=== PATIENT | female | born 1945 | race Caucasian/White ===

== ENCOUNTER 2017-04-19 08:00 | Outpatient (CLI) | payer MEDICARE, BC | END 2017-04-19 08:01 | disposition home or self-care (01) | LOC: BICMAMMO 08:00 | PROVIDERS: ATTEND Family Medicine | DX: Z12.31 Encounter for screening mammogram for malignant neoplasm of breast (principal); R92.1 Mammographic calcification found on diagnostic imaging of breast | CPT/HCPCS: 77063; G0202; 77067 ==

== ENCOUNTER 2018-08-10 09:48 | Outpatient (CLI) | payer MEDICARE, BC ==
--- NOTE | 2018-08-10 11:27 | MMO ---
Bilateral MAMMO Bilat Screen [facility]. CLINICAL HISTORY: Patient is 73 years old and is seen for screening. The patient has no family history of breast cancer. The patient has no personal history of cancer. VIEWS: The views performed were: bilateral craniocaudal with tomosynthesis and bilateral mediolateral oblique with tomosynthesis. FILMS COMPARED: The present examination has been compared to prior imaging studies performed at [facility] on 06/03/1999, 12/03/1999, 12/06/2000, 02/07/2002, 02/22/2003, 04/23/2004, 03/08/2006, 04/26/2007, 04/29/2008, 05/07/2009, 06/03/2010, 07/01/2011, 07/05/2012, 12/12/2013, 01/10/2015, 03/08/2016 and 04/19/2017. MAMMOGRAM FINDINGS: There are scattered fibroglandular densities. There are stable benign appearing calcifications seen in both breasts. There are no suspicious masses, suspicious calcifications, or new areas of architectural distortion. IMPRESSION: THERE IS NO MAMMOGRAPHIC EVIDENCE OF MALIGNANCY. A ROUTINE FOLLOW-UP MAMMOGRAM IN 1 YEAR IS RECOMMENDED. THE RESULTS OF THIS EXAM WERE SENT TO THE PATIENT. ACR BI-RADS Category 2 - Benign finding MAMMOGRAPHY NOTE: 1. A negative mammogram report should not delay a biopsy if a dominant of clinically suspicious mass is present. 2. Approximately 10% to 15% of breast cancers are not detected by mammography. 3. Adenosis and dense breasts may obscure an underlying neoplasm.
--- NOTE | 2018-08-10 11:36 | BD ---
BONE DENSITOMETRY USING DEXA: Date: 08/10/18 HISTORY: Osteoporosis. Postmenopausal female. COMPARISON: None. FINDINGS: Lumbar Spine: BMD (g/cm2) L1 1.006 T-Score: 0.1 Z-Score: 2.2 L2 0.983 T-Score: -0.4 Z-Score: 1.9 L3 1.010 T-Score: -0.7 Z-Score: 1.8 L4 1.093 T-Score: 0.3 Z-Score: 2.8 L1-L4 1.029 T-Score: -0.2 Z-Score: 2.2 Femoral Neck: 0.679 T-Score: -1.5 Z-Score: 0.5 Total Femur: 0.825 T-Score: -1.0 Z-Score: 0.8 IMPRESSION: Lumbar Spine: WHO classification is normal; fracture risk not increased. Femoral Neck: WHO classification is osteopenia. 10 year fracture risk for major osteoporotic fracture is 11% and hip fracture is 2.1%. POS: [facility]
== END 2018-08-10 09:49 | disposition home or self-care (01) ==
LOC: BICMAMMO 09:48
PROVIDERS: ATTEND Family Medicine
DX: Z12.31 Encounter for screening mammogram for malignant neoplasm of breast (principal); Z13.820 Encounter for screening for osteoporosis; M85.859 Other specified disorders of bone density and structure, unspecified thigh
CPT/HCPCS: 77063; 77067; 77080

== ENCOUNTER 2024-05-01 15:36 | Inpatient (IN) | payer BC, MEDICARE ==
[2024-05-01 16:43] LABS: #Basophils 0.07 10x3/uL (0.0-0.2); %Basophils 1.1 % (0.0-1.0); %Eosinophils 3.1 % (0.0-10.0); %Lymphocytes 31.1 % (21.0-51.0); %Monocytes 6.8 % (0.0-10.0); %Neutrophils 57.6 % (42.0-75.0); Hemoglobin 14.7 g/dL (12.0-16.0); Mean Corpuscular Hemoglobin 31.6 pg (27.0-31.0); Mean Corpuscular Volume 90.3 fL (78.0-98.0); Mean Platelet Volume 10.7 fL (7.4-10.4); Platelet Count 267 10x3/uL (130-400); RBC Distribution Width 12.9 % (11.5-14.5); Red Blood Cell (RBC) Count 4.65 mill/uL (4.20-5.40)
[2024-05-01 16:57] LABS: ALT (SGPT) 21 U/L (8-55); AST (SGOT) 23 U/L (5-34); Albumin 4.1 g/dL (3.4-4.8); Alkaline Phosphatase 60 U/L (40-110); Anion Gap 15 mmol/L (10-20); BUN (Urea Nitrogen) 10 mg/dL (9.8-20.1); Bilirubin, Total 0.5 mg/dL (0.2-1.2); Calc. Creatinine Clearance 0 mL/min (70-130); Calcium 9.3 mg/dL (7.8-10.44); Carbon Dioxide 25 mmol/L (23-31); Chloride 95 mmol/L (98-107); Estimated GFR 89; Globulin 3.5 g/dL (2.4-3.5); Glucose 101 mg/dL (83-110); Magnesium 2.2 mg/dL (1.6-2.6); Potassium 2.9 mmol/L (3.5-5.1); Protein, Total 7.6 g/dL (5.8-8.1); Sodium 132 mmol/L (136-145)
[2024-05-01 17:01] LABS: INR-International Normal Ratio 0.9; Prothrombin Time 12.3 sec (12.0-14.7)
[2024-05-01 17:03] LABS: Troponin I 0.039 ng/mL (< 0.028)
[2024-05-01] MEDS ORDERED: Potassium Chloride 20 MEQ TAB ONE (18:42)
[2024-05-01] MEDS ORDERED: cloNIDine 0.1 MG TAB ONE (18:42)
[2024-05-01 19:18] LABS: Troponin I 0.035 ng/mL (< 0.028)
[2024-05-01] MEDS ORDERED: Aspirin Chewable 81 MG TAB ONE (19:20)
[2024-05-01] MEDS ORDERED: Nitroglycerin 0.4 MG TAB 1 EACH ONE (19:20)
[2024-05-01] MEDS ORDERED: Acetaminophen 325 MG TAB PO PRN (20:15)
[2024-05-01] MEDS ORDERED: hydrALAZINE 20 MG/ML VIAL SLOW IVP PRN (20:24)
[2024-05-01 22:06] LABS: Troponin I 0.026 ng/mL (< 0.028)
[2024-05-01 23:41] VITALS: BMI 26.2
[2024-05-02 04:30] LABS: #Basophils 0.05 10x3/uL (0.0-0.2); %Eosinophils 5.6 % (0.0-10.0); %Lymphocytes 36.8 % (21.0-51.0); %Monocytes 10.3 % (0.0-10.0); %Neutrophils 45.9 % (42.0-75.0); Hematocrit 38.2 % (36.0-47.0); Hemoglobin 13.5 g/dL (12.0-16.0); Mean Corpuscular HGB CONC 35.3 g/dL (32.0-36.0); Mean Corpuscular Hemoglobin 31.8 pg (27.0-31.0); Mean Corpuscular Volume 90.1 fL (78.0-98.0); Mean Platelet Volume 10.8 fL (7.4-10.4); Platelet Count 230 10x3/uL (130-400); RBC Distribution Width 12.9 % (11.5-14.5); Red Blood Cell (RBC) Count 4.24 mill/uL (4.20-5.40)
[2024-05-02 05:08] LABS: Anion Gap 12 mmol/L (10-20); BUN (Urea Nitrogen) 10 mg/dL (9.8-20.1); Calc. Creatinine Clearance 82 mL/min (70-130); Calcium 8.7 mg/dL (7.8-10.44); Carbon Dioxide 26 mmol/L (23-31); Chloride 98 mmol/L (98-107); Estimated GFR 91; Glucose 95 mg/dL (83-110); Magnesium 2.2 mg/dL (1.6-2.6); Potassium 2.9 mmol/L (3.5-5.1); Sodium 133 mmol/L (136-145)
[2024-05-02] MEDS: Levothyroxine Sodium 100 MCG TAB PO SCH (05:25)
[2024-05-02] MEDS: Potassium Chloride 20 MEQ TAB PO SCH (05:25)
[2024-05-02] MEDS ORDERED: Levothyroxine Sodium 125 MCG TAB PO SCH (06:00)
[2024-05-02] MEDS: Enoxaparin 80 MG (0.8 mL) SYRINGE SC SCH (08:53)
[2024-05-02] MEDS: Triamterene/Hydrochlorothiazide 37.5 mg/25 mg Tablet PO SCH ×2 (08:54→12:00)
[2024-05-02] MEDS: Aspirin 81 mg Enteric Coated Tablet PO SCH (08:54)
[2024-05-02] MEDS ORDERED: Enoxaparin 60 MG (0.6 mL) SYRINGE SC SCH (09:00)
[2024-05-02 11:55] LABS: Anion Gap 13 mmol/L (10-20); BUN (Urea Nitrogen) 11 mg/dL (9.8-20.1); Calc. Creatinine Clearance 74 mL/min (70-130); Calcium 9.6 mg/dL (7.8-10.44); Carbon Dioxide 26 mmol/L (23-31); Chloride 98 mmol/L (98-107); Estimated GFR 89; Glucose 87 mg/dL (83-110); Potassium 3.8 mmol/L (3.5-5.1); Sodium 133 mmol/L (136-145)
[2024-05-02] MEDS: Pantoprazole DR 40 MG TAB PO SCH (12:16)
[2024-05-02] MEDS: Apixaban 5 MG TAB PO SCH (20:28)
[2024-05-03 04:30] LABS: #Basophils 0.06 10x3/uL (0.0-0.2); %Basophils 1.1 % (0.0-1.0); %Eosinophils 6.5 % (0.0-10.0); %Lymphocytes 46.2 % (21.0-51.0); %Monocytes 10.1 % (0.0-10.0); %Neutrophils 35.7 % (42.0-75.0); Hematocrit 39.9 % (36.0-47.0); Hemoglobin 13.8 g/dL (12.0-16.0); Mean Corpuscular HGB CONC 34.6 g/dL (32.0-36.0); Mean Corpuscular Hemoglobin 30.9 pg (27.0-31.0); Mean Corpuscular Volume 89.5 fL (78.0-98.0); Mean Platelet Volume 10.9 fL (7.4-10.4); Platelet Count 240 10x3/uL (130-400); RBC Distribution Width 12.9 % (11.5-14.5); Red Blood Cell (RBC) Count 4.46 mill/uL (4.20-5.40)
[2024-05-03 04:42] LABS: Anion Gap 12 mmol/L (10-20); BUN (Urea Nitrogen) 14 mg/dL (9.8-20.1); Calc. Creatinine Clearance 72 mL/min (70-130); Calcium 8.9 mg/dL (7.8-10.44); Carbon Dioxide 25 mmol/L (23-31); Chloride 97 mmol/L (98-107); Estimated GFR 88; Glucose 104 mg/dL (83-110); Potassium 3.1 mmol/L (3.5-5.1); Sodium 131 mmol/L (136-145)
[2024-05-03 05:08] LABS: Free T4 (Free Thyroxine) 1.33 ng/dL (0.70-1.48)
[2024-05-03] MEDS ORDERED: Triamterene/Hydrochlorothiazide 37.5 mg/25 mg Tablet PO SCH (09:00)
[2024-05-03] MEDS: Pantoprazole DR 40 MG TAB PO SCH (10:00)
[2024-05-03] MEDS: Losartan 25 MG TAB PO SCH (10:00)
[2024-05-03] MEDS: Potassium Chloride 20 MEQ TAB PO SCH (10:00)
[2024-05-04 04:07] LABS: #Basophils 0.07 10x3/uL (0.0-0.2); %Basophils 1.4 % (0.0-1.0); %Eosinophils 4.3 % (0.0-10.0); %Lymphocytes 43.9 % (21.0-51.0); %Monocytes 10.5 % (0.0-10.0); %Neutrophils 39.3 % (42.0-75.0); Hematocrit 40.8 % (36.0-47.0); Mean Corpuscular HGB CONC 34.3 g/dL (32.0-36.0); Mean Corpuscular Hemoglobin 31.6 pg (27.0-31.0); Mean Corpuscular Volume 92.1 fL (78.0-98.0); Platelet Count 254 10x3/uL (130-400); Red Blood Cell (RBC) Count 4.43 mill/uL (4.20-5.40)
[2024-05-04 06:40] LABS: Anion Gap 13 mmol/L (10-20); BUN (Urea Nitrogen) 18 mg/dL (9.8-20.1); Calc. Creatinine Clearance 73 mL/min (70-130); Calcium 9.3 mg/dL (7.8-10.44); Carbon Dioxide 24 mmol/L (23-31); Chloride 99 mmol/L (98-107); Estimated GFR 89; Glucose 101 mg/dL (83-110); Potassium 4.1 mmol/L (3.5-5.1); Sodium 132 mmol/L (136-145)
[2024-05-04] MEDS: Potassium Chloride 20 MEQ TAB PO SCH (11:31)
[2024-05-04 12:40] VITALS: BP 161/81; TEMP 97.6
== END 2024-05-04 16:14 | disposition home or self-care (01) | DRG 281 ==
LOC: ERS 15:36 → 2SE 19:51 → OBSVTOIN 05-03 09:25
PROVIDERS: ADMIT Student in an Organized Health Care Education/Training Program; ATTEND Student in an Organized Health Care Education/Training Program
DX: I16.0 Hypertensive urgency (principal); I48.0 Paroxysmal atrial fibrillation; E87.1 Hypo-osmolality and hyponatremia; I21.A1 Myocardial infarction type 2; E87.6 Hypokalemia; I10 Essential (primary) hypertension; I25.10 Atherosclerotic heart disease of native coronary artery without angina pectoris; E03.9 Hypothyroidism, unspecified; Z79.01 Long term (current) use of anticoagulants; Z79.899 Other long term (current) drug therapy; Z90.710 Acquired absence of both cervix and uterus; Z98.890 Other specified postprocedural states; Z79.82 Long term (current) use of aspirin
CPT/HCPCS: 36415; 36416; 71045; 80048; 80053; 82088; 83735; 83880; 84244; 84439; 84443; 84481; 84484; 85025; 85610; 85730; 93005; 93306; J1650

== ENCOUNTER 2025-01-10 09:11 | Outpatient (CLI) | payer MEDICARE, OTHER | END 2025-01-10 09:12 | disposition home or self-care (01) | LOC: BICMAMMO 09:11 | PROVIDERS: ATTEND Physician Assistant | DX: Z12.31 Encounter for screening mammogram for malignant neoplasm of breast (principal); M85.89 Other specified disorders of bone density and structure, multiple sites; M85.851 Other specified disorders of bone density and structure, right thigh; M85.852 Other specified disorders of bone density and structure, left thigh | CPT/HCPCS: 77063; 77067; 77080 ==